=== PATIENT | female | born 1955 | race Caucasian/White ===

== ENCOUNTER 2019-03-18 09:37 | Outpatient (REF) | payer BC, SELFPAY ==
[2019-03-18 21:35] LABS: HCT 43.2 % (36.0-46.0); HGB 13.9 g/dL (12.0-15.5); Mean Corp. HGB Concentration 32.2 g/dL (32.0-36.0); Mean Corpuscular Hemoglobin 30.4 pg (27.0-33.0); Mean Corpuscular Volume 94.5 fL (80-95); Mean Platelet Volume 9.8 fL (8.0-11.0); Platelet Count 281 x1000/uL (130-400); RBC 4.57 m/cumm (4.00-5.20); RBC Distribution Width 14.5 % (11.7-14.6)
[2019-03-18 22:28] LABS: ALT 74 U/L (14-59); AST 59 U/L (15-37); Albumin 4.2 g/dL (3.4-5.0); Alkaline Phosphatase 122 U/L (46-116); Anion Gap 9.4 mmol/L (3-11); BUN 15 mg/dL (7-18); Bilirubin, Total 0.7 mg/dL (0.2-1.0); CO2 30.6 mmol/L (21.0-32.0); Calcium 9.4 mg/dL (8.5-10.1); Calculated LDL 74 mg/dL; Chloride 103 mmol/L (98-107); Cholesterol 159 mg/dL (50-200); Estimated GFR 56.37 (mL/min/1.73m2); Glucose 94 mg/dL (70-100); HDL Cholesterol 68 mg/dL (40-60); Potassium 3.7 mmol/L (3.5-5.1); Sodium 143 mmol/L (136-145); TSH (W/Ref FT4) 1.55 uIU/mL (0.36-3.74); Total Protein 7.9 g/dL (6.4-8.2); Triglyceride 88 mg/dL (30-150); Vitamin B12 877 pg/mL (193-986)
[2019-03-18 22:29] LABS: Vitamin D 25 Total 41.5 ng/ml (30-100)
== END 2019-03-18 09:57 ==
LOC: NCHCN 09:37
PROVIDERS: PCP Nurse Practitioner Family; Visit Provider Family Medicine
DX: Z00.00 Encounter for general adult medical examination without abnormal findings (principal); E78.5 Hyperlipidemia, unspecified; E53.8 Deficiency of other specified B group vitamins; K76.0 Fatty (change of) liver, not elsewhere classified; M06.4 Inflammatory polyarthropathy; E66.9 Obesity, unspecified
CPT/HCPCS: 80053; 80061; 82306; 85027; 82607; 84443

== ENCOUNTER 2019-04-07 16:37 | Outpatient (REF) | payer BC, SELFPAY ==
[2019-04-09 12:05] LABS: Lyme Ab w Rflx to Lyme Confirm Negative
[2019-04-09 21:03] LABS: Anaplasma phagocytophilum Negative (Negative); B. miyamotoi PCR Negative (Negative); Babesia divergens/MO-1 Negative (Negative); Babesia duncani Negative (Negative); Babesia microti Negative (Negative); Ehrlichia chaffeensis Negative (Negative); Ehrlichia ewingii/canis Negative (Negative); Ehrlichia muris eauclairensis Negative (Negative)
== END 2019-04-07 16:57 ==
LOC: NCHCN 16:37
PROVIDERS: PCP Nurse Practitioner Family; Visit Provider Family Medicine
DX: M06.4 Inflammatory polyarthropathy (principal); M25.50 Pain in unspecified joint; R53.83 Other fatigue
CPT/HCPCS: 87798; 86618

== ENCOUNTER 2020-04-13 16:29 | Outpatient (REF) | payer BC, SELFPAY ==
--- NOTE | 2020-04-13 13:15 | PAPFT_PTH ---
PATIENT: Zena Fisher LOC: [facility] U#:[id number] AGE/SX: 64/F ROOM: RE04/13/[address]: Veena Avitia : 1955 BED: DIS: 04/13/2020 SPEC #: [id number] RECD: 04/14/20 12:02 STATUS: MILE REQ #: [id number] NEELAM: 04/13/20 13:[address]: Veena Avitia DEPT: [facility] Cytology RECD BY: Nayana Cisneros ENTERED: 04/14/20 12:02 SP TYPE: PAPFT OTHR DR: Alana Toure Tissues: 1 - CX/ENDOCX FOR PAP SMEARS Procedures: PAP THIN PREP/[facility] Screening HPV DNA PROBE Comments: [id number]
== END 2020-04-13 16:49 ==
LOC: NCHCN 16:29
PROVIDERS: PCP Nurse Practitioner Family; Visit Provider Family Medicine
DX: Z12.4 Encounter for screening for malignant neoplasm of cervix (principal); Z00.00 Encounter for general adult medical examination without abnormal findings; Z11.51 Encounter for screening for human papillomavirus (HPV)
CPT/HCPCS: 88142; 87624

== ENCOUNTER 2020-04-13 16:48 | Outpatient (REF) | payer BC, SELFPAY ==
[2020-04-13 21:42] LABS: ALT 46 U/L (14-59); AST 40 U/L (15-37); Albumin 4.2 g/dL (3.4-5.0); Alkaline Phosphatase 127 U/L (46-116); Anion Gap 8.6 mmol/L (3-11); BUN 13 mg/dL (7-18); Bilirubin, Total 0.6 mg/dL (0.2-1.0); CO2 32.4 mmol/L (21.0-32.0); CREATININE 0.95 mg/dL (0.55-1.02); Calcium 9.3 mg/dL (8.5-10.1); Calculated LDL 86 mg/dL (<100); Chloride 102 mmol/L (98-107); Cholesterol 174 mg/dL (<200); Estimated GFR 59.61 (mL/min/1.73m2); Glucose 89 mg/dL (74-106); HDL Cholesterol 66 mg/dL (40-60); Potassium 3.7 mmol/L (3.5-5.1); Sodium 143 mmol/L (136-145); Total Protein 7.9 g/dL (6.4-8.2); Triglyceride 111 mg/dL (<150)
== END 2020-04-13 17:08 ==
LOC: NCHCN 16:48
PROVIDERS: PCP Nurse Practitioner Family; Visit Provider Family Medicine
DX: Z00.00 Encounter for general adult medical examination without abnormal findings (principal); R53.83 Other fatigue; K76.0 Fatty (change of) liver, not elsewhere classified; R94.4 Abnormal results of kidney function studies; R74.01 Elevation of levels of liver transaminase levels
CPT/HCPCS: 80053; 80061

== ENCOUNTER 2021-07-12 13:37 | Outpatient (REF) | payer BC, SELFPAY ==
[2021-07-12 15:31] LABS: ALT 56 U/L (14-59); AST 39 U/L (15-37); Albumin 4.2 g/dL (3.4-5.0); Alkaline Phosphatase 126 U/L (46-116); Anion Gap 7.9 mmol/L (3-11); BUN 13 mg/dL (7-18); Bilirubin, Total 0.6 mg/dL (0.2-1.0); CO2 30.1 mmol/L (21.0-32.0); CREATININE 0.9 mg/dL (0.55-1.02); Calcium 9.6 mg/dL (8.5-10.1); Calculated LDL 81 mg/dL (<100); Chloride 101 mmol/L (98-107); Cholesterol 177 mg/dL (<200); Glucose 102 mg/dL (74-106); HDL Cholesterol 76 mg/dL (40-60); Potassium 3.6 mmol/L (3.5-5.1); Sodium 139 mmol/L (136-145); Total Protein 7.7 g/dL (6.4-8.2); Triglyceride 101 mg/dL (<150)
== END 2021-07-12 13:38 | disposition home or self-care (01) ==
LOC: NCHCN 13:37
PROVIDERS: PCP Nurse Practitioner Family; Visit Provider Family Medicine
DX: E66.9 Obesity, unspecified (principal); K76.0 Fatty (change of) liver, not elsewhere classified; R94.4 Abnormal results of kidney function studies; Z79.899 Other long term (current) drug therapy; E78.5 Hyperlipidemia, unspecified
CPT/HCPCS: 80053; 80061

== ENCOUNTER 2021-09-14 18:20 | Outpatient (REF) | payer BC, SELFPAY ==
--- NOTE | 2021-09-14 09:10 | SKI_PTH ---
PATIENT: Zena Fisher LOC: [facility] U#:[id number] AGE/SX: 66/F ROOM: RE09/14/[address]: Veena Avitia : 1955 BED: DIS: 09/14/2021 SPEC #: [id number] RECD: 09/17/21 12:26 STATUS: MILE REQ #: [id number] NEELAM: 09/14/21 09:[address]: Veena Avitia DEPT: Surgical Specimen RECD BY: Jazmín Amezcua ENTERED: 09/17/21 12:27 SP TYPE: SKI OTHR DR: Alana Toure Tissues: 1 - SKIN BIOPSY(SHAVE/PUNCH) Procedures: SKIN LEVEL 4 Comments: [id number]
== END 2021-09-14 18:21 | disposition home or self-care (01) ==
LOC: NCHCN 18:20
PROVIDERS: PCP Nurse Practitioner Family; Visit Provider Family Medicine
DX: D18.01 Hemangioma of skin and subcutaneous tissue (principal)
CPT/HCPCS: 88305

== ENCOUNTER 2022-01-21 11:06 | Outpatient (REF) | payer BC, SELFPAY ==
[2022-01-21 14:58] LABS: Potassium 3.8 mmol/L (3.5-5.1)
[2022-01-21 15:13] LABS: Hemoglobin A1C 5.6 % (<5.7)
== END 2022-01-21 11:07 | disposition home or self-care (01) ==
LOC: NCHCN 11:06
PROVIDERS: PCP Nurse Practitioner Family; Visit Provider Nurse Practitioner Family
DX: R73.9 Hyperglycemia, unspecified (principal); Z86.39 Personal history of other endocrine, nutritional and metabolic disease
CPT/HCPCS: 83036; 84132

== ENCOUNTER 2022-10-14 12:17 | Outpatient (REF) | payer MEDICARE, OTHER, SELFPAY ==
[2022-10-14 15:40] LABS: Abs Immature Grans 0.02 10^3/uL (0.0-0.06); Absolute Basophil Count 0.06 10^3/uL (0.0-0.2); Absolute Lymphocyte Count 2.65 10^3/uL (1.2-3.4); Absolute Monocyte Count 0.43 10^3/uL (0.1-0.8); Absolute Neutrophil Count 3.97 10^3/uL (1.2-6.7); Basophils % 0.8; Eosinophils % 2.7; HCT 45.5 % (36.0-46.0); HGB 15.4 g/dL (11.2-15.7); Immature Grans % 0.3; Lymphocytes % 36.2; MCH 31.2 pg (27.0-33.0); MCHC 33.8 % (32.0-36.0); MCV 92 fL (80-95); MPV 9.4 fL (8.0-11.0); Monocytes % 5.9; Neutrophils % 54.1; Platelet Count 263 10^3/uL (130-400); RBC 4.93 10^6/uL (3.93-5.22); RDW 13.2 % (11.7-14.6); RDW-SD 45.4 fL; WBC 7.33 10^3/uL (4.4-10.8)
[2022-10-14 15:47] LABS: ESR 32 mm/hr (0-30)
[2022-10-14 16:18] LABS: ALT 52 U/L (14-59); AST 46 U/L (15-37); Albumin 4.3 g/dL (3.4-5.0); Alkaline Phosphatase 101 U/L (46-116); BUN 17 mg/dL (7-18); Bilirubin, Total 0.8 mg/dL (0.2-1.0); Calcium 9.8 mg/dL (8.5-10.1); Chloride 105 mmol/L (98-107); Estimated GFR 62.52 (mL/min/1.73m2); Glucose 103 mg/dL (74-106); Potassium 3.8 mmol/L (3.5-5.1); Sodium 141 mmol/L (136-145); TSH 0.88 uIU/mL (0.36-3.74); Total Protein 8.2 g/dL (6.4-8.2)
[2022-10-15 18:43] LABS: Rheumatoid Factor 33.2 IU/mL (<12.0)
[2022-10-16 09:54] LABS: Cyclic Citrullinated Peptide <2.5 U/mL (<5.0)
[2022-10-16 10:53] LABS: Lyme Ab w Rflx to Lyme Confirm Negative (Negative)
[2022-10-17 19:54] LABS: Anaplasma phagocytophilum Negative (Negative); B. miyamotoi PCR Negative (Negative); Babesia divergens/MO-1 Negative (Negative); Babesia duncani Negative (Negative); Babesia microti Negative (Negative); Ehrlichia chaffeensis Negative (Negative); Ehrlichia ewingii/canis Negative (Negative); Ehrlichia muris eauclairensis Negative (Negative)
== END 2022-10-14 12:18 | disposition home or self-care (01) ==
LOC: NCHCN 12:17
PROVIDERS: PCP Nurse Practitioner Family; Visit Provider Nurse Practitioner Family
DX: R53.83 Other fatigue (principal); M25.40 Effusion, unspecified joint; M25.50 Pain in unspecified joint
CPT/HCPCS: 80053; 85652; 86200; 87798; 84443; 85025; 86140; 86431; 86618

== ENCOUNTER 2022-11-26 15:04 | Outpatient (REF) | payer MEDICARE, SELFPAY ==
[2022-11-26 15:25] LABS: Anion Gap 7.2 mmol/L (3-11); BUN 14 mg/dL (7-18); CO2 29.8 mmol/L (21.0-32.0); CREATININE 0.9 mg/dL (0.55-1.02); Calcium 9.1 mg/dL (8.5-10.1); Chloride 105 mmol/L (98-107); Estimated GFR 70.95 (mL/min/1.73m2); Glucose 104 mg/dL (74-106); Potassium 3.4 mmol/L (3.5-5.1); Sodium 142 mmol/L (136-145)
== END 2022-11-26 15:05 | disposition home or self-care (01) ==
LOC: LBN 15:04
PROVIDERS: PCP Nurse Practitioner Family; Visit Provider Nurse Practitioner Family
DX: I10 Essential (primary) hypertension (principal)
CPT/HCPCS: 80048

== ENCOUNTER 2023-12-29 14:52 | Outpatient (REF) | payer MEDICARE, SELFPAY ==
[2023-12-29 15:52] LABS: ALT 48 U/L (14-59); AST 43 U/L (15-37); Albumin 4.2 g/dL (3.4-5.0); Alkaline Phosphatase 106 U/L (46-116); Anion Gap 8.6 mmol/L (3-11); BUN 13 mg/dL (7-18); Bilirubin, Total 0.77 mg/dL (0.2-1.0); CO2 29.4 mmol/L (21.0-32.0); CREATININE 0.9 mg/dL (0.55-1.02); Calcium 9.6 mg/dL (8.5-10.1); Chloride 106 mmol/L (98-107); Estimated GFR 70.51 (mL/min/1.73m2); Glucose 96 mg/dL (74-106); Sodium 144 mmol/L (136-145); TSH 1.44 uIU/Ml (0.36-3.74); Total Protein 7.8 g/dL (6.4-8.2)
[2023-12-29 16:19] LABS: Hemoglobin A1C 5.8 % (<5.7)
== END 2023-12-29 14:53 | disposition home or self-care (01) ==
LOC: NCHCN 14:52
PROVIDERS: PCP Nurse Practitioner Family; Visit Provider Nurse Practitioner Family
DX: I10 Essential (primary) hypertension (principal); R73.03 Prediabetes
CPT/HCPCS: 80053; 83036; 84443

== ENCOUNTER 2024-04-01 20:50 | Outpatient (REF) | payer MEDICARE, SELFPAY ==
[2024-04-01 21:30] LABS: Anion Gap 7.6 mmol/L (3-11); BUN 26 mg/dL (7-18); CO2 28.4 mmol/L (21.0-32.0); CREATININE 1.2 mg/dL (0.55-1.02); Calcium 9.6 mg/dL (8.5-10.1); Chloride 105 mmol/L (98-107); Estimated GFR 49.92 (mL/min/1.73m2); Glucose 135 mg/dL (74-106); Potassium 3.9 mmol/L (3.5-5.1); Sodium 141 mmol/L (136-145)
== END 2024-04-01 20:51 | disposition home or self-care (01) ==
LOC: LBN 20:50
PROVIDERS: PCP Nurse Practitioner Family; Visit Provider Nurse Practitioner Adult Health
DX: I50.32 Chronic diastolic (congestive) heart failure (principal)
CPT/HCPCS: 80048

== ENCOUNTER 2024-12-28 17:26 | Outpatient (REF) | payer MEDICARE, SELFPAY ==
[2024-12-28 15:52] LABS: Abs Immature Grans 0.03 10^3/uL (0.0-0.06); HCT 41.9 % (36.0-46.0); HGB 13.7 g/dL (11.2-15.7); Immature Grans % 0.3 %; MCH 31.1 pg (27.0-33.0); MCHC 32.7 % (32.0-36.0); MCV 95 fL (80-95); MPV 9.6 fL (8.0-11.0); Platelet Count 271 10^3/uL (130-400); RBC 4.41 10^6/uL (3.93-5.22); RDW 12.5 % (11.7-14.6); RDW-SD 43.9 fL; WBC 9.13 10^3/uL (4.4-10.8)
[2024-12-28 16:07] LABS: ALT 34 U/L (14-59); AST 36 U/L (15-37); Albumin 3.9 g/dL (3.4-5.0); Alkaline Phosphatase 120 U/L (46-116); Anion Gap 11.4 mmol/L (3-11); BUN 11 mg/dL (7-18); Bilirubin, Total 0.6 mg/dL (0.2-1.0); CO2 26.6 mmol/L (21.0-32.0); Calcium 9.7 mg/dL (8.5-10.1); Chloride 105 mmol/L (98-107); Estimated GFR 70.07 (mL/min/1.73m2); Glucose 87 mg/dL (74-106); Potassium 4.0 mmol/L (3.5-5.1); Sodium 143 mmol/L (136-145); Total Protein 7.6 g/dL (6.4-8.2); Uric Acid 4.4 mg/dL (2.6-6.0)
== END 2024-12-28 17:27 | disposition home or self-care (01) ==
LOC: LBN 17:26
PROVIDERS: PCP Nurse Practitioner Family; Visit Provider Internal Medicine Rheumatology
DX: M10.9 Gout, unspecified (principal)
CPT/HCPCS: 80053; 84550; 85025